=== PATIENT | male | born 1980 | race Hispanic/Latino ===

== ENCOUNTER 2018-12-27 03:43 | Emergency (ER) | payer OTHER | END 2018-12-27 06:12 | disposition home or self-care (01) | LOC: EDH 03:43 | DX: M25.561 Pain in right knee (principal); G89.29 Other chronic pain | CPT/HCPCS: 73562 ==

== ENCOUNTER 2021-05-19 07:11 | Inpatient (IN) | payer SELFPAY ==
[~2021-05-19] VITALS: Ht 172.7 cm; Wt 106.4 kg
[2021-05-19 07:37] VITALS: BP 124/78
[2021-05-19] MEDS ORDERED: NACL 0.9% 1000ML 1,000 ML IV ONE (07:45)
[2021-05-19] MEDS ORDERED: SOLU-MEDROL 125MG VIAL IVP ONE (07:45)
[2021-05-19] MEDS ORDERED: CLINDAMYCIN IVPB 900MG/50ML 50 ML IV SCH (07:45)
[2021-05-19 08:40] LABS: BASOPHILS % (AUTO) 0.3 % (0.0-5.0); LYMPHOCYTES % (AUTO) 15.3 % (21.0-51.0); MEAN CORPUSCULAR HEMOGLOBIN 30.8 pg (27.0-33.0); MEAN CORPUSCULAR HGB CONC 34.7 g/dL (32.0-36.0); MEAN CORPUSCULAR VOLUME 88.8 fL (79-99); MONOCYTES % (AUTO) 8.4 % (3.0-13.0); NEUTROPHILS % (AUTO) 74.4 % (40.0-77.0); PLATELET COUNT (AUTO) 228 K/uL (130-400); RED BLOOD CELL COUNT(AUTO) 4.28 MIL/uL (4.50-6.20); RED CELL DISTRIBUTION WIDTH 11.4 % (11.0-15.5); WHITE BLOOD COUNT (AUTO) 15.3 K/uL (4.8-10.8)
[2021-05-19 08:48] LABS: APPEARANCE,URINE Clear (CLEAR); BILIRUBIN,URINE Negative (NEGATIVE); COLOR,URINE Yellow (YELLOW); GLUCOSE, URINE (UA) TRACE mg/dL (NEGATIVE); KETONES,URINE Negative (NEGATIVE); LEUKOCYTE ESTERASE ,URINE Negative (NEGATIVE); NITRATE,URINE Negative (NEGATIVE); OCCULT BLOOD,URINE Negative (NEGATIVE); PROTEIN,URINE Negative (NEGATIVE)
[2021-05-19 08:57] LABS: BACTERIA,URINE Rare /HPF (None Seen); RBC,URINE None Seen /HPF (0-1); SQUAMOUS EPITHELIAL CELL,UR 0-2 /HPF (0-2); WBC,URINE 0-1 /HPF (0-1)
[2021-05-19 08:59] LABS: ALBUMIN 3.3 g/dL (3.5-5.0); BILIRUBIN,TOTAL 0.5 mg/dL (0.2-1.0); CREATININE 0.8 mg/dL (0.5-1.5); POTASSIUM 3.9 mmol/L (3.5-5.1); TOTAL PROTEIN, SERUM 7.4 g/dL (6.0-8.3)
[2021-05-19] MEDS ORDERED: KETOROLAC 30MG VIAL (30MG/ML) IV ONE (09:45)
[2021-05-19] MEDS ORDERED: PENICILLIN G BENZATHINE LA 1.2 MILUNITS/2 ML SYG IM ONE (09:45)
[2021-05-19] MEDS ORDERED: IOHEXOL-350 50ML VIAL IV ONE (09:55)
[2021-05-19] MEDS ORDERED: LACTULOSE 20 GM/30 ML UDCUP PO PRN (12:00)
[2021-05-19] MEDS ORDERED: ONDANSETRON 4MG INJ IV PRN (12:00)
[2021-05-19] MEDS ORDERED: KETOROLAC 15MG/ML VIAL (15MG/ML) IV PRN (12:00)
[2021-05-19] MEDS ORDERED: ACETAMINOPHEN 325 MG TAB PO PRN ×2 (12:00)
[2021-05-19] MEDS ORDERED: CLINDAMYCIN IVPB 600MG/50ML 50 ML IV SCH (12:00)
[2021-05-19] MEDS ORDERED: CHLORDIAZEPOXIDE HCL 25 MG CAP PO PRN (12:15)
[2021-05-19] MEDS ORDERED: PHARMACY COMMUNICATION MISC PRN (12:15)
[2021-05-19] MEDS ORDERED: LORAZEPAM 2 MG/ML 1 ML VIAL IVP PRN (12:15)
[2021-05-19 12:26] LABS: AMPHET/METH SCREEN,URINE NEGATIVE (NEGATIVE); BARBITURATE SCREEN, URINE NEGATIVE (NEGATIVE); BENZODIAZEPINES SCREEN,URINE NEGATIVE (NEGATIVE); CANNABINOID SCREEN,URINE NEGATIVE (NEGATIVE); COCAINE SCREEN,URINE POSITIVE (NEGATIVE); OPIATE SCREEN,URINE NEGATIVE (NEGATIVE); PHENCYCLIDINE SCREEN,URINE NEGATIVE (NEGATIVE)
[2021-05-19 12:27] LABS: HEMOGLOBIN A1C 5.7 % (4.0-6.0)
[2021-05-19 12:38] LABS: ALCOHOL, BLOOD < 3 mg/dL (0-10); CHOLESTEROL 141 mg/dL (<200); CREATINE KINASE, TOTAL 155 U/L (21-232); HDL CHOLESTEROL 38 mg/dL (29-71); LDL DIRECT 83 mg/dL (0-99); MYOGLOBIN 28 ng/mL (10-92); THYROID STIMULATING HORMONE 0.29 uIU/mL (0.36-3.74); TRIGLYCERIDES 93 mg/dL (30-200); TROPONIN I < 0.04 ng/mL (0.00-0.06)
[2021-05-19] MEDS: CLINDAMYCIN IVPB 600MG/50ML 50 ML IV SCH (16:04)
[2021-05-19 17:49] LABS: CREATINE KINASE, TOTAL 110 U/L (21-232); MYOGLOBIN 24 ng/mL (10-92); TROPONIN I < 0.04 ng/mL (0.00-0.06)
[2021-05-19 18:50] VITALS: BP 130/98
[2021-05-19 19:30] VITALS: BP 138/71
[2021-05-19 19:46] LABS: CREATINE KINASE, TOTAL 109 U/L (21-232); MYOGLOBIN 20 ng/mL (10-92); TROPONIN I < 0.04 ng/mL (0.00-0.06)
[2021-05-19] MEDS: FAMOTIDINE 20MG VIAL IV SCH (21:18)
[2021-05-20] MEDS: CLINDAMYCIN IVPB 600MG/50ML 50 ML IV SCH ×2 (00:17→08:06)
[2021-05-20 00:48] VITALS: BP 125/81
[2021-05-20 06:04] LABS: BASOPHILS % (AUTO) 0.4 % (0.0-5.0); EOSINOPHILS % (AUTO) 0.4 % (0.0-8.0); HEMATOCRIT 36.2 % (42-54); LYMPHOCYTES % (AUTO) 20.5 % (21.0-51.0); MEAN CORPUSCULAR HEMOGLOBIN 30.1 pg (27.0-33.0); MEAN CORPUSCULAR HGB CONC 34.8 g/dL (32.0-36.0); MEAN CORPUSCULAR VOLUME 86.4 fL (79-99); MONOCYTES % (AUTO) 7.5 % (3.0-13.0); NEUTROPHILS % (AUTO) 69.6 % (40.0-77.0); PLATELET COUNT (AUTO) 230 K/uL (130-400); RED BLOOD CELL COUNT(AUTO) 4.19 MIL/uL (4.50-6.20); RED CELL DISTRIBUTION WIDTH 11.3 % (11.0-15.5); WHITE BLOOD COUNT (AUTO) 11.3 K/uL (4.8-10.8)
[2021-05-20 06:19] VITALS: BP 129/81
[2021-05-20 06:19] LABS: CREATININE 0.7 mg/dL (0.5-1.5); POTASSIUM 3.5 mmol/L (3.5-5.1)
[2021-05-20 08:07] VITALS: BP 135/84
[2021-05-20] MEDS: THIAMINE HCL 100 MG/ML 2ML VIAL IM SCH (09:19)
[2021-05-20] MEDS: FOLIC ACID 1 MG TABLET PO SCH (09:19)
[2021-05-20] MEDS: MULTIVITAMIN TABLET PO SCH (09:19)
[2021-05-20] MEDS: ASPIRIN 81MG CHEW TAB PO SCH (09:20)
[2021-05-20] MEDS: FAMOTIDINE 20MG VIAL IV SCH ×2 (09:20→20:01)
[2021-05-20] MEDS: ENOXAPARIN SODIUM 40 MG/0.4 ML SYRINGE SQ SCH (09:20)
[2021-05-20] MEDS: DEXAMETHASONE SOD PHOSPHATE 4 MG/ML 1ML VIAL IVP SCH ×3 (09:20→20:01)
[2021-05-20 11:15] VITALS: BP 124/66
[2021-05-20] MEDS ORDERED: PIP/TAZ ZOSYN 3.375G 3.375 GM VIAL IVPB SCH (12:00)
[2021-05-20] MEDS ORDERED: 0.9% NACL 50ML 50 ML IV.SOLN. IV SCH (12:00)
[2021-05-20] MEDS ORDERED: RENAL DOSE IV SCH (12:00)
[2021-05-20] MEDS ORDERED: LEVOFLOXACIN 750 MG/D5W 150 ML 150 ML IV SCH (12:00)
[2021-05-20] MEDS: ZOSYN 3.375GM+NS 50ML 50 ML IV SCH ×2 (15:11→20:02)
[2021-05-20 15:35] VITALS: BP 117/69
[2021-05-20 19:58] VITALS: BP 143/83
[2021-05-21 00:07] VITALS: BP 141/91
[2021-05-21 04:00] VITALS: BP 127/77
[2021-05-21 05:04] LABS: BASOPHILS % (AUTO) 0.3 % (0.0-5.0); HEMATOCRIT 39.8 % (42-54); MEAN CORPUSCULAR HEMOGLOBIN 29.8 pg (27.0-33.0); MEAN CORPUSCULAR HGB CONC 33.9 g/dL (32.0-36.0); MEAN CORPUSCULAR VOLUME 87.9 fL (79-99); MONOCYTES % (AUTO) 5.7 % (3.0-13.0); PLATELET COUNT (AUTO) 285 K/uL (130-400); RED BLOOD CELL COUNT(AUTO) 4.53 MIL/uL (4.50-6.20); RED CELL DISTRIBUTION WIDTH 11.4 % (11.0-15.5); WHITE BLOOD COUNT (AUTO) 13.6 K/uL (4.8-10.8)
[2021-05-21] MEDS: ZOSYN 3.375GM+NS 50ML 50 ML IV SCH ×2 (05:12→13:00)
[2021-05-21 05:35] LABS: B-TYPE NATRIURETIC PEPTIDE 48 pg/mL (0-100)
[2021-05-21 06:21] LABS: ERYTHROCYTE SEDIMENTATION RATE 35 MM/HR (0-15)
[2021-05-21 07:19] VITALS: BP 123/69
[2021-05-21] MEDS: THIAMINE HCL 100 MG/ML 2ML VIAL IM SCH (09:40)
[2021-05-21] MEDS: ASPIRIN 81MG CHEW TAB PO SCH (09:41)
[2021-05-21] MEDS: DEXAMETHASONE SOD PHOSPHATE 4 MG/ML 1ML VIAL IVP SCH ×2 (09:41→14:00)
[2021-05-21] MEDS: FOLIC ACID 1 MG TABLET PO SCH (09:41)
[2021-05-21] MEDS: FAMOTIDINE 20MG VIAL IV SCH (09:41)
[2021-05-21] MEDS: MULTIVITAMIN TABLET PO SCH (09:41)
[2021-05-21] MEDS: ENOXAPARIN SODIUM 40 MG/0.4 ML SYRINGE SQ SCH (09:42)
[2021-05-21 10:57] VITALS: BP 138/89
[2021-05-21] MEDS ORDERED: AMOX500C2 PO (13:44)
[2021-05-21 15:40] VITALS: BP 127/86
== END 2021-05-21 17:30 | disposition home or self-care (01) | DRG 153 ==
LOC: EDH 07:11 → OBSVTOIN 11:48 → EDHIP 11:48 → 3AH 05-20 07:24
PROVIDERS: ADMIT Internal Medicine; ATTEND Internal Medicine
DX: J02.0 Streptococcal pharyngitis (principal); I24.9 Acute ischemic heart disease, unspecified; E87.1 Hypo-osmolality and hyponatremia; F14.10 Cocaine abuse, uncomplicated; F12.10 Cannabis abuse, uncomplicated; E66.9 Obesity, unspecified; Z20.822 Contact with and (suspected) exposure to COVID-19; I88.9 Nonspecific lymphadenitis, unspecified; F17.210 Nicotine dependence, cigarettes, uncomplicated; Z68.35 Body mass index [BMI] 35.0-35.9, adult; Z82.49 Family history of ischemic heart disease and other diseases of the circulatory system
CPT/HCPCS: 36415; 70490; 70491; 80048; 80053; 80061; 80305; 81001; 82550; 83036; 83605; 83874; 83880; 84145; 84443; 84484; 85025; 85651; 86140; 87040; 87635; 87804; 87880; 93005; C9803; G0378; J1100; J1650; J1885; J1956; J2543; J2930; J3411; J3490; J7030; Q9967

== ENCOUNTER 2022-10-03 16:48 | Emergency (ER) | payer BC, OTHER ==
[~2022-10-03] VITALS: Ht 167.6 cm; Wt 102.1 kg
[~2022-10-03 16:48] MED LIST: AMOX500C2 PO
[2022-10-03] MEDS ORDERED: OSEL75 PO (18:03)
[2022-10-03 18:39] VITALS: BP 121/74
== END 2022-10-03 18:42 | disposition home or self-care (01) ==
LOC: EDH 16:48
DX: J11.1 Influenza due to unidentified influenza virus with other respiratory manifestations (principal); B97.89 Other viral agents as the cause of diseases classified elsewhere; Z20.822 Contact with and (suspected) exposure to COVID-19
CPT/HCPCS: 99283; 87635; 87804 ×2; C9803